=== PATIENT | male | born 1975 | race Hispanic/Latino ===

== ENCOUNTER 2019-04-14 12:25 | Emergency (ER) | payer SELFPAY ==
[2019-04-14 13:46] LABS: Absolute Lymphocytes (CBC) 2.1 K/uL (0.7-4.9); Basophils % 0.6 % (0-1.3); Hematocrit 49.2 % (39.6-49.0); Lymphocytes % 32.4 % (15.3-44.8); MPV 10.5 fL (7.6-11.3); RBC Red Blood Cell Count 5.81 M/uL (4.33-5.43)
[2019-04-14] MEDS ORDERED: FOLIC ACID 5 MG/ML VIAL ONE (13:47)
[2019-04-14] MEDS ORDERED: NA CHLORIDE 0.9% 1,000 ML ONE (13:47)
[2019-04-14 14:01] LABS: Protime INR 1.06
--- NOTE | 2019-04-14 14:01 | RAD REPORT ---
EXAM DESCRIPTION: CT - Head Brain Wo Cont - 04/14/2019 1:25 pm CLINICAL HISTORY: Visual disturbance, stroke-like symptoms COMPARISON: None. TECHNIQUE: Axial 5 mm thick images of the head were obtained without IV contrast. All CT scans are performed using dose optimization technique as appropriate and may include automated exposure control or mA/KV adjustment according to patient size. FINDINGS: No intracranial hemorrhage, mass, edema or shift of mid-line structures. No acute infarcti on changes seen. No abnormal extra-axial fluid collections. Ventricles are normal. Mastoid air cells and visualized portions of the paranasal sinuses are clear. No acute bony findings. IMPRESSION: Negative non-contrast CT head examination.
[2019-04-14 14:03] LABS: ALT/SGPT 41 U/L (12-78); AST/SGOT 17 U/L (15-37); Albumin 3.7 g/dL (3.4-5.0); Alkaline Phosphatase 101 U/L (45-117); BUN Blood Urea Nitrogen 17 mg/dL (7-18); Bicarbonate 27 mmol/L (21-32); Bilirubin Direct 0.2 mg/dL (0-0.2); Glucose Level 197 mg/dL (74-106); Magnesium 2.2 mg/dL (1.8-2.4); NT PRO-BNP 27 pg/mL (<125); Potassium 3.9 mmol/L (3.5-5.1); Protein, Total 7.3 g/dL (6.4-8.2); Sodium Level 141 mmol/L (136-145); Troponin (Emerg Dept Use Only) < 0.02 ng/mL (0.0-0.045)
--- NOTE | 2019-04-14 14:12 | RAD REPORT ---
EXAM DESCRIPTION: RAD - Chest Single View - 04/14/2019 1:55 pm CLINICAL HISTORY: Cough COMPARISON: None. TECHNIQUE: AP portable chest image was obtained 1353 hours . FINDINGS: No focal lung parenchymal process. Interstitial pattern is not outside of normal for stiven ble imaging and body habitus. Heart and vasculature are normal. No measurable pleural effusion and no pneumothorax. No acute bony abnormality seen. No acute aortic findings suspected. IMPRESSION: No acute cardiopulmonary process.
--- NOTE | 2019-04-14 14:48 | ER ---
Nurse's Notes [facility] Name: Atilio Hernandez Age: 43 yrs Sex: Male : 1975 Arrival Date: 04/14/2019 Time: 12:26 Bed 18 Private MD: Diagnosis: Tributary (branch) retinal vein occlusion, left eye;Essential (primary) hypertension;Type 2 diabetes mellitus;Cerebral infarction Presentation: 04/14 12:36 Presenting complaint: Patient states: Lost vision in lower yi in L eye suddenly two ss days ago. Pt went to see an eye doctor who told him he had a stroke in his eye and told him to come to ED immediately. Pt reports that he was scared to he did not come in right away. Denies pain. Transition of care: patient was not received from another setting of care. Onset of symptoms was April 12, 2019. Risk Assessment: Do you want to hurt yourself or someone else? Patient reports no desire to harm self or others. Initial Sepsis Screen: Does the patient meet any 2 criteria? No. Patient's initial sepsis screen is negative. Does the patient have a suspected source of infection? No. Patient's initial sepsis screen is negative. Note Pt went to see Dr. Laura O.D. and was given a diagnosis of branch vein occlusion with macular and papillary edema to OS. Care prior to arrival: None. 12:36 Acuity: JORJE 3 ss 12:36 Method Of Arrival: Ambulatory ss Historical: - Allergies: 12:39 No Known Allergies; ss - Home Meds: 12:39 None [Active]; ss - PMHx: 13:01 Diabetes - NIDDM; ss - PSHx: 12:39 None; ss - Immunization history:: Adult Immunizations up to date. - Social history:: Smoking status: Patient/guardian denies using tobacco. - Ebola Screening: : Patient denies exposure to infectious person Patient denies travel to an Ebola-affected area in the 21 days before illness onset. - Family history:: not pertinent. Screenin:00 Abuse screen: Denies threats or abuse. Denies injuries from another. Nutritional bp screening: No deficits noted. Tuberculosis screening: No symptoms or risk factors identified. Fall Risk None identified. 14:00 Patient has been NPO before screening. The patient is alert, able to follow commands. ph The patient does not exhibit slurred or garbled speech The patient is not exhibiting difficulty speaking. The patient does not exhibit difficulty understanding words. The patient is able to swallow own secretions with no drooling or need for suction. Patient tolerated one teaspoon of water. No drooling, immediate coughing, gurgling, or clearing of the throat was noted. The patient tolerated 90mL of water. No drooling, immediate coughing, gurgling, or clearing of the throat was noted. The patient passed the bedside swallow screening. Oral medications may be given as ordered. Contact Physician for further diet orders. Assessment: 13:00 General: Appears in no apparent distress. comfortable, well groomed, Behavior is calm, ph cooperative, appropriate for age. Pain: Denies pain. Neuro: Level of Consciousness is awake, alert, obeys commands, Oriented to person, place, time, situation, Optics Engineer are equal bilaterally Moves all extremities. Full function Gait is steady, Speech is normal, Facial symmetry appears normal, Pupils are PERRLA, Intact. Neuro: Denies weakness blurred vision dizziness, difficulty swallowing, paresthesias headache. Cardiovascular: Capillary refill < 3 seconds in bilateral fingers Patient's skin is warm and dry. Respiratory: Airway is patent Respiratory effort is even, unlabored, Respiratory pattern is regular, symmetrical. GI: No signs and/or symptoms were reported involving the gastrointestinal system. Derm: Skin is intact, is healthy with good turgor, Skin is pink, warm \T\ dry. Musculoskeletal: Circulation, motion, and sensation intact. Range of motion: intact in all extremities. 14:00 Reassessment: Patient appears in no apparent distress at this time. Patient and/or ph family updated on plan of care and expected duration. Pain level reassessed. Patient is alert, oriented x 3, equal unlabored respirations, skin warm/dry/pink. 15:07 Reassessment: PT D/C HOME AMBULATORY, DX WITH RETINAL VEIN OCCLUSION. bp Vital Signs: 12:39 BP 140 / 97; Pulse 72; Resp 16; Temp 98.6(TE); Pulse Ox 98% on R/A; Height 5 ft. 6 in. ss (167.64 cm); Pain 0/10; 13:30 BP 134 / 78; Pulse 77; Resp 18; Pulse Ox 99% on R/A; ph 14:38 BP 123 / 76; Pulse 89; Resp 16; Temp 98.4; Pulse Ox 100% on R/A; mh5 NIH Stroke Scale Scores: 14:00 NIHSS Score: 1 ph ED Course: 12:26 Patient arrived in ED. rg4 12:39 Triage completed. ss 12:39 Arm band placed on right wrist. ss 12:48 Danilo Hernandez MD is Attending Physician. hellen 13:05 Maya Esqueda, RN is Primary Nurse. ph 13:24 CT completed. Patient tolerated procedure well. Patient moved back from CT. mw3 13:25 CT Head Brain wo Cont In Process Unspecified. EDMS 13:53 XRAY Chest (1 view) In Process Unspecified. EDMS 14:39 Ultrasound completed. Patient tolerated well. Notified ED Physician billie. sg3 14:40 Patient has correct armband on for positive identification. Bed in low position. Side mh5 rails up X 1. Pulse ox on. NIBP on. 14:42 US Carotid Artery Bilateral In Process Unspecified. EDMS 14:47 Tal Rodas MD is Referral Physician. hellen 14:48 Sarabjit Spears MD is Referral Physician. hellen 15:07 No provider procedures requiring assistance completed. IV discontinued, intact, bp bleeding controlled, No redness/swelling at site. Pressure dressing applied. Administered Medications: 13:56 Drug: NS 0.9% 1000 ml Route: IV; Rate: 1 bolus; Site: right antecubital; ph 15:20 Follow up: Response: No adverse reaction; IV Status: Completed infusion; IV Intake: ph 1000ml 13:56 Drug: foLIC Acid 1 mg Route: IVPB; Site: right antecubital; ph 14:30 Follow up: Response: No adverse reaction; IV Status: Completed infusion ph 15:00 Drug: Aspirin Chewable Tablet 324 mg Route: PO; bp 15:06 Follow up: Response: No adverse reaction bp Intake: 15:20 IV: 1000ml; Total: 1000ml. ph Outcome: 14:47 Discharge ordered by . hellen 15:08 Discharged to home ambulatory. bp 15:08 Condition: stable 15:08 Discharge instructions given to patient, Instructed on discharge instructions, follow up and referral plans. medication usage, Demonstrated understanding of instructions, follow-up care, medications, Prescriptions given X 3. 15:09 Patient left the ED. bp NIH Stroke Scale - NIH Stroke Score Date: 04/14/2019 Time: 14:00 Total Score = 1 1a. Level of Consciousness (LOC) - 0(Alert) 1b. Level of Consciousness (LOC) (Year \T\ Age) - 0(Both) 1c. LOC Commands (Open \T\ Closes Eyes/Portfolio Administrator) - 0(Both) 2. Best Gaze (Lateral Gaze Paresis) - 0(Normal) 3. Visual Field Loss - 1(Partial hemianopia) 4. Facial Palsy - 0(Normal) 5a. Left Arm: Motor (10-second hold) - 0(No drift) 5b. Right Arm: Motor (10-second hold) - 0(No drift) 6a. Left Leg: Motor (5-second hold - always test supine) - 0(No drift) 6b. Right Leg: Motor (5-second hold - always test supine) - 0(No drift) 7. Limb Ataxia (finger/nose \T\ heel/bazzi - test with eyes open) - 0(Absent) 8. Sensory Loss (pinprick arms/legs/face) - 0(Normal) 9. Best Language: Aphasia (description/naming/reading) - 0(No aphasia) 10. Dysarthria (speech clarity - read or repeat words) - 0(Normal) 11. Extinction and Inattention (visual/tactile/auditory/spatial/personal) - 0(No abnormality) Initials: ph Signatures: Dispatcher [employer] EDDanilo Arredondo MD MD cha Smirch, Shelby, RN RN ss Hall, Patricia, RN RN ph Garcia, Rubi [facility] Theresa Steiner [facility] Scotty Elliott RN RN bp Godinez, Sarah 3 Sandrine Blackwell mw3 Corrections: (The following items were deleted from the chart) 13:01 12:39 PMHx: Hypertension; ss ss
--- NOTE | 2019-04-14 14:49 | EDPHYS ---
Physician Documentation [facility] Name: Atilio Hernandez Age: 43 yrs Sex: Male : 1975 Arrival Date: 04/14/2019 Time: 12:26 Bed 18 Private MD: ED Physician Danilo Hernandez HPI: 04/14 13:08 This 43 yrs old Male presents to ER via Ambulatory with complaints of Eye hellen Problem. 13:08 The patient is experiencing decreased vision. Onset: The symptoms/episode hellen began/occurred 3 day(s) ago. Duration: the symptoms are continuous. Aggravated by nothing. Associated signs and symptoms: Pertinent positives: None. Severity of symptoms: At their worst the symptoms were mild in the emergency department the symptoms are unchanged. The patient has not experienced similar symptoms in the past. Historical: - Allergies: 12:39 No Known Allergies; ss - Home Meds: 12:39 None [Active]; ss - PMHx: 13:01 Diabetes - NIDDM; ss - PSHx: 12:39 None; ss - Immunization history:: Adult Immunizations up to date. - Social history:: Smoking status: Patient/guardian denies using tobacco. - Ebola Screening: : Patient denies exposure to infectious person Patient denies travel to an Ebola-affected area in the 21 days before illness onset. - Family history:: not pertinent. ROS: 13:08 Constitutional: Negative for fever, chills, and weight loss, ENT: Negative for injury, hellen pain, and discharge, Neck: Negative for injury, pain, and swelling, Cardiovascular: Negative for chest pain, palpitations, and edema, Respiratory: Negative for shortness of breath, cough, wheezing, and pleuritic chest pain, Abdomen/GI: Negative for abdominal pain, nausea, vomiting, diarrhea, and constipation, Back: Negative for injury and pain, : Negative for injury, bleeding, discharge, and swelling, MS/Extremity: Negative for injury and deformity, Skin: Negative for injury, rash, and discoloration, Neuro: Negative for headache, weakness, numbness, tingling, and seizure, Psych: Negative for depression, anxiety, suicide ideation, homicidal ideation, and hallucinations, Allergy/Immunology: Negative for hives, rash, and allergies, Endocrine: Negative for neck swelling, polydipsia, polyuria, polyphagia, and marked weight changes, Hematologic/Lymphatic: Negative for swollen nodes, abnormal bleeding, and unusual bruising. 13:08 Eyes: Positive for vision loss, visual disturbance. Exam: 13:08 Constitutional: This is a well developed, well nourished patient who is awake, alert, hellen and in no acute distress. Head/Face: Normocephalic, atraumatic. ENT: Nares patent. No nasal discharge, no septal abnormalities noted. Tympanic membranes are normal and external auditory canals are clear. Oropharynx with no redness, swelling, or masses, exudates, or evidence of obstruction, uvula midline. Mucous membranes moist. Neck: Trachea midline, no thyromegaly or masses palpated, and no cervical lymphadenopathy. Supple, full range of motion without nuchal rigidity, or vertebral point tenderness. No Meningismus. Chest/axilla: Normal chest wall appearance and motion. Nontender with no deformity. No lesions are appreciated. Cardiovascular: Regular rate and rhythm with a normal S1 and S2. No gallops, murmurs, or rubs. Normal PMI, no JVD. No pulse deficits. Respiratory: Lungs have equal breath sounds bilaterally, clear to auscultation and percussion. No rales, rhonchi or wheezes noted. No increased work of breathing, no retractions or nasal flaring. Abdomen/GI: Soft, non-tender, with normal bowel sounds. No distension or tympany. No guarding or rebound. No evidence of tenderness throughout. Skin: Warm, dry with normal turgor. Normal color with no rashes, no lesions, and no evidence of cellulitis. MS/ Extremity: Pulses equal, no cyanosis. Neurovascular intact. Full, normal range of motion. Neuro: Awake and alert, GCS 15, oriented to person, place, time, and situation. Cranial nerves II-XII grossly intact. Motor strength 5/5 in all extremities. Sensory grossly intact. Cerebellar exam normal. Normal gait. Psych: Awake, alert, with orientation to person, place and time. Behavior, mood, and affect are within normal limits. 13:08 Eyes: Pupils: no acute changes, equal, round, and reactive to light and accomodation, Extraocular movements: intact throughout, Conjunctiva: normal, no acute changes, Corneas: are normal, no acute changes, Sclera: no appreciated abnormality, no acute changes, Anterior chamber: normal, no acute changes, Nystagmus: is not appreciated, no acute changes. Vital Signs: 12:39 BP 140 / 97; Pulse 72; Resp 16; Temp 98.6(TE); Pulse Ox 98% on R/A; Height 5 ft. 6 in. ss (167.64 cm); Pain 0/10; 13:30 BP 134 / 78; Pulse 77; Resp 18; Pulse Ox 99% on R/A; ph 14:38 BP 123 / 76; Pulse 89; Resp 16; Temp 98.4; Pulse Ox 100% on R/A; mh5 NIH Stroke Scale Scores: 14:00 NIHSS Score: 1 ph MDM: 12:48 Patient medically screened. [facility] 13:12 Data reviewed: vital signs, nurses notes, lab test result(s), EKG, radiologic studies, [facility] CT scan, plain films. 04/14 13:08 Order name: Basic Metabolic Panel; Complete Time: 14:47 [facility] 04/14 13:08 Order name: CBC with Diff; Complete Time: 14:47 [facility] 04/14 13:08 Order name: LFT's; Complete Time: 14:47 [facility] 04/14 13:08 Order name: Magnesium; Complete Time: 14:47 [facility] 04/14 13:08 Order name: NT PRO-BNP; Complete Time: 14:47 [facility] 04/14 13:08 Order name: PT-INR; Complete Time: 14:47 [facility] 04/14 13:08 Order name: Troponin (emerg Dept Use Only); Complete Time: 14:47 [facility] 04/14 13:08 Order name: XRAY Chest (1 view); Complete Time: 14:47 [facility] 04/14 13:08 Order name: CT Head Brain wo Cont; Complete Time: 14:47 [facility] 04/14 13:08 Order name: US Carotid Artery Bilateral [facility] 04/14 13:08 Order name: Cardiac monitoring; Complete Time: 13:38 [facility] 04/14 13:08 Order name: EKG - Nurse/Tech; Complete Time: 19:31 [facility] 04/14 13:08 Order name: IV Saline Lock; Complete Time: 13:38 [facility] 04/14 13:08 Order name: Labs collected and sent; Complete Time: 13:38 [facility] 04/14 13:08 Order name: O2 Per Protocol; Complete Time: 13:18 [facility] 04/14 13:08 Order name: O2 Sat Monitoring; Complete Time: 13:18 [facility] Administered Medications: 13:56 Drug: NS 0.9% 1000 ml Route: IV; Rate: 1 bolus; Site: right antecubital; ph 15:20 Follow up: Response: No adverse reaction; IV Status: Completed infusion; IV Intake: ph 1000ml 13:56 Drug: foLIC Acid 1 mg Route: IVPB; Site: right antecubital; ph 14:30 Follow up: Response: No adverse reaction; IV Status: Completed infusion ph 15:00 Drug: Aspirin Chewable Tablet 324 mg Route: PO; bp 15:06 Follow up: Response: No adverse reaction bp Disposition: 04/14/19 14:47 Discharged to Home. Impression: Tributary (branch) retinal vein occlusion, left eye, Essential (primary) hypertension, Type 2 diabetes mellitus, Cerebral infarction. - Condition is Stable. - Discharge Instructions: Type 2 Diabetes Mellitus, Diagnosis, Adult, Hypertension, Hypertension, [id number], How to Take Your Blood Pressure, [id number]-[id number], Aspirin and Your Heart, Type 2 Diabetes Mellitus, Diagnosis, Adult, [id number], Managing Your Hypertension. - Prescriptions for Lisinopril 5 mg Oral Tablet - take 1 tablet by ORAL route once daily; 20 tablet. Folic Acid 1 mg Oral Tablet - take 1 tablet by ORAL route once daily; 30 tablet. - Medication Reconciliation Form, Thank You Letter, Antibiotic Education, Prescription Opioid Use form. - Follow up: Private Physician; When: 2 - 3 days; Reason: Recheck today's complaints, Continuance of care, Re-evaluation by your physician. Follow up: Tal Rodas; When: 2 - 3 days; Reason: Recheck today's complaints, Re-evaluation by your physician. Follow up: Sarabjit Spears MD; When: 2 - 3 days; Reason: Recheck today's complaints, Re-evaluation by your physician. - Problem is new. - Symptoms have improved. NIH Stroke Scale - NIH Stroke Score Date: 04/14/2019 Time: 14:00 Total Score = 1 1a. Level of Consciousness (LOC) - 0(Alert) 1b. Level of Consciousness (LOC) (Year \T\ Age) - 0(Both) 1c. LOC Commands (Open \T\ Closes Eyes/Rn Lvn) - 0(Both) 2. Best Gaze (Lateral Gaze Paresis) - 0(Normal) 3. Visual Field Loss - 1(Partial hemianopia) 4. Facial Palsy - 0(Normal) 5a. Left Arm: Motor (10-second hold) - 0(No drift) 5b. Right Arm: Motor (10-second hold) - 0(No drift) 6a. Left Leg: Motor (5-second hold - always test supine) - 0(No drift) 6b. Right Leg: Motor (5-second hold - always test supine) - 0(No drift) 7. Limb Ataxia (finger/nose \T\ heel/bazzi - test with eyes open) - 0(Absent) 8. Sensory Loss (pinprick arms/legs/face) - 0(Normal) 9. Best Language: Aphasia (description/naming/reading) - 0(No aphasia) 10. Dysarthria (speech clarity - read or repeat words) - 0(Normal) 11. Extinction and Inattention (visual/tactile/auditory/spatial/personal) - 0(No abnormality) Initials: ph Signatures: Dispatcher [employer] EDMS Danilo Hernandez MD MD cha Smirch, Shelby, RN RN ss Maya Esqueda RN RN Scotty Elliott RN RN bp Corrections: (The following items were deleted from the chart) 13:01 12:39 PMHx: Hypertension; [facility] [place] 14:48 14:47 04/14/2019 14:47 Discharged to Home. Impression: Tributary (branch) hellen retinal vein occlusion, left eye; Essential (primary) hypertension; Type 2 diabetes mellitus; Cerebral infarction. Condition is Stable. Discharge Instructions: Type 2 Diabetes Mellitus, Diagnosis, Adult, Hypertension, Hypertension, [id number], How to Take Your Blood Pressure, [id number], Aspirin and Your Heart, Type 2 Diabetes Mellitus, Diagnosis, Adult, Dgni-[id number], Managing Your Hypertension. Prescriptions for Lisinopril 5 mg Oral Tablet - take 1 tablet by ORAL route once daily; 20 tablet. and Forms are Medication Reconciliation Form, Thank You Letter, Antibiotic Education, Prescription Opioid Use. Follow up: Private Physician; When: 2 - 3 days; Reason: Recheck today's complaints, Continuance of care, Re-evaluation by your physician. Follow up: Tal Rodas; When: 2 - 3 days; Reason: Recheck today's complaints, Re-evaluation by your physician. Problem is new. Symptoms have improved. hellen 15:09 14:48 04/14/2019 14:47 Discharged to Home. Impression: Tributary (branch) bp retinal vein occlusion, left eye; Essential (primary) hypertension; Type 2 diabetes mellitus; Cerebral infarction. Condition is Stable. Discharge Instructions: Type 2 Diabetes Mellitus, Diagnosis, Adult, Hypertension, Hypertension, [id number], How to Take Your Blood Pressure, Jowi-in-Doby, Aspirin and Your Heart, Type 2 Diabetes Mellitus, Diagnosis, Adult, [id number], Managing Your Hypertension. Prescriptions for Lisinopril 5 mg Oral Tablet - take 1 tablet by ORAL route once daily; 20 tablet, Folic Acid 1 mg Oral Tablet - take 1 tablet by ORAL route once daily; 30 tablet. and Forms are Medication Reconciliation Form, Thank You Letter, Antibiotic Education, Prescription Opioid Use. Follow up: Private Physician; When: 2 - 3 days; Reason: Recheck today's complaints, Continuance of care, Re-evaluation by your physician. Follow up: Tal Rodas; When: 2 - 3 days; Reason: Recheck today's complaints, Re-evaluation by your physician. Follow up: Sarabjit Spears; When: 2 - 3 days; Reason: Recheck today's complaints, Re-evaluation by your physician. Problem is new. Symptoms have improved. hellen
[2019-04-14] MEDS ORDERED: ASPIRIN 81 MG CHEWABLE TABLET ONE (15:01)
[2019-04-14 15:28] VITALS: BP 123/76; TEMP 98.4; O2SAT 100
--- NOTE | 2019-04-14 15:43 | RAD REPORT ---
EXAM DESCRIPTION: - CP - 04/14/2019 2:42 pm CLINICAL HISTORY: Dizziness;Visual disturbances COMPARISON: No comparisons TECHNIQUE: Real-time sonographic evaluation of bilateral carotid and vertebral systems was performed . Rose scale and Doppler interrogation were performed with waveform tracing bilaterally. FINDINGS: Normal high resistance waveforms are noted in both external carotid arteries. The common c arotid arteries and internal carotid arteries show normal low resistance waveforms. No significant plaque formation is seen. Peak systolic and end diastolic velocity values and the ICA/ CCA ratios are in the non-hemodynamically significant range. Antegrade flow seen in both vertebral arteries. Velocity values and ratios were recorded and are retained in the patient's imaging records. IMPRESSION: No significant atherosclerotic changes noted. No evidence of a hemodynamically significant stenosis.
== END 2019-04-14 15:09 | disposition home or self-care (01) ==
LOC: ER 12:25
DX: I63.9 Cerebral infarction, unspecified (principal); H53.8 Other visual disturbances; H34.8322 Tributary (branch) retinal vein occlusion, left eye, stable; I10 Essential (primary) hypertension; E11.9 Type 2 diabetes mellitus without complications
CPT/HCPCS: 36415; 70450; 71045; 80048; 80076; 83735; 83880; 84484; 85025; 85610; 93880; 96361; 96365; 99284; J7030

== ENCOUNTER 2021-12-04 20:44 | Emergency (ER) | payer SELFPAY ==
--- NOTE | 2021-12-04 22:33 | RAD REPORT ---
EXAM DESCRIPTION: RAD - Hand Right 3 View - 12/04/2021 9:53 pm CLINICAL HISTORY: DEFORMITY, saw injury COMPARISON: No comparisonsdelete select FINDINGS: On the antrum attic amputation of the tuft third distal phalanx. Significant soft tissue w ound present as well. No acute bone finding of the fourth digit. There is evidence for soft tissue in jury at the tip of the fourth digit. No other bone or joint abnormality. No foreign body is seen. 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
--- NOTE | 2021-12-04 22:39 | EDPHYS ---
Physician Documentation [facility] Name: Atilio Hernandez Age: 46 yrs Sex: Male : 1975 Arrival Date: 12/04/2021 Time: 20:46 Bed 12 Private MD: ED Physician Peryr Kidd HPI: 12/04 22:32 This 46 yrs old Male presents to ER via Ambulatory with complaints of Finger jl9 Injury. 22:32 Trauma demographics: Location of Injury: The injury occurred at home. Mechanism of jl9 injury: Cut with saw.. Associated injuries: The patient sustained 3rd and 4th digit fingertips. . Onset: The symptoms/episode began/occurred just prior to arrival. Historical: - Allergies: 20:58 No Known Allergies; eh3 - Home Meds: 20:58 Metformin Oral [Active]; Lisinopril Oral [Active]; eh3 - PMHx: 20:58 Diabetes - NIDDM; eh3 - PSHx: 20:58 None; eh3 - Immunization history:: Adult Immunizations up to date. - Social history:: Smoking status: Patient denies any tobacco usage or history of. Patient/guardian denies using alcohol. ROS: 22:33 Constitutional: Negative for fever, chills, and weight loss, Eyes: Negative for injury, jl9 pain, redness, and discharge, ENT: Negative for injury, pain, and discharge, Neck: Negative for injury, pain, and swelling, Cardiovascular: Negative for chest pain, palpitations, and edema, Respiratory: Negative for shortness of breath, cough, wheezing, and pleuritic chest pain, Abdomen/GI: Negative for abdominal pain, nausea, vomiting, diarrhea, and constipation, Back: Negative for injury and pain. 22:33 Skin: Negative for injury, rash, and discoloration, Neuro: Negative for headache, weakness, numbness, tingling, and seizure, Psych: Negative for depression, anxiety, suicide ideation, homicidal ideation, and hallucinations, Allergy/Immunology: Negative for hives, rash, and allergies, Endocrine: Negative for neck swelling, polydipsia, polyuria, polyphagia, and marked weight changes, Hematologic/Lymphatic: Negative for swollen nodes, abnormal bleeding, and unusual bruising. 22:33 MS/extremity: Positive for laceration. Exam: 22:34 Constitutional: This is a well developed, well nourished patient who is awake, alert, jl9 and in no acute distress. Head/Face: Normocephalic, atraumatic. Eyes: Pupils equal round and reactive to light, extra-ocular motions intact. Lids and lashes normal. Conjunctiva and sclera are non-icteric and not injected. Cornea within normal limits. Periorbital areas with no swelling, redness, or edema. ENT: Mucous membranes moist. Neck: Trachea midline, no thyromegaly or masses palpated, and no cervical lymphadenopathy. Supple, full range of motion without nuchal rigidity, or vertebral point tenderness. No Meningismus. Chest/axilla: Normal chest wall appearance and motion. Nontender with no deformity. No lesions are appreciated. Cardiovascular: Regular rate and rhythm with a normal S1 and S2. No gallops, murmurs, or rubs. Normal PMI, no JVD. No pulse deficits. Respiratory: Lungs have equal breath sounds bilaterally, clear to auscultation and percussion. No rales, rhonchi or wheezes noted. No increased work of breathing, no retractions or nasal flaring. Abdomen/GI: Soft, non-tender, with normal bowel sounds. No distension or tympany. No guarding or rebound. No evidence of tenderness throughout. Back: No spinal tenderness. No costovertebral tenderness. Full range of motion. Skin: Warm, dry with normal turgor. Normal color with no rashes, no lesions, and no evidence of cellulitis. 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 . Vital Signs: 21:06 BP 164 / 100; Pulse 75; Resp 18; Temp 98.2; Pulse Ox 98% on R/A; Weight 68.04 kg; eh3 Height 5 ft. 5 in. (165.10 cm); Pain 3/10; 23:51 BP 152 / 100; Pulse 68; Resp 17; Pulse Ox 99% on R/A; ll3 23:51 BP 152 / 100; Pulse 68; Resp 17; Pulse Ox 99% on R/A; ll3 21:06 Body Mass Index 24.96 (68.04 kg, 165.10 cm) 3 Laceration: 23:39 Wound Repair of 2cm ( 0.8in ) subcutaneous laceration to right hand. Distal jl9 neuro/vascular/tendon intact. Anesthesia: Local anesthetic administered with 4 mls of 1% lidocaine. Wound prep: Simple cleansing, Moderate cleansing. Skin closed with 8 5-0 Vicryl using simple sutures and sterile technique. Dressed with Bacitracin, 4x4's. Patient tolerated well. 23:39 Wound Repair of 4cm ( 1.6in ) subcutaneous laceration to right hand and right middle jl9 fingernail. Irregularly shaped.. Distal neuro/vascular/tendon intact. Anesthesia: Local anesthetic administered with 5 mls of 1% lidocaine. Wound prep: Simple cleansing, Moderate cleansing. Skin closed with 4 5-0 Vicryl using simple sutures and sterile technique. Dressed with Bacitracin, 4x4's. Patient tolerated well. MDM: 20:52 Patient medically screened. jl9 22:38 Data reviewed: vital signs, nurses notes. Counseling: I had a detailed discussion with [facility] the patient and/or guardian regarding: the historical points, exam findings, and any diagnostic results supporting the discharge/admit diagnosis, radiology results, the need to transfer to another facility. 23:37 Counseling: I had a detailed discussion with the patient and/or guardian regarding: jl9 Patient refusing to be transferred and would like to be discharged. Patient notified of possible consequences including infection and possible loss of his limb. Patient states he will return to ED if hand worsens. . 12/04 22:33 Order name: SARS RAPID [facility] 12/04 23:14 Order name: SARS-COV-2 Antigen Rapid [facility] 12/04 21:04 Order name: XRAY Hand RIGHT 3 View; Complete Time: 22:35 [facility] 12/04 21:09 Order name: Suture Tray Setup; Complete Time: 21:13 [facility] 12/04 21:09 Order name: Sutures, Vicryl; Complete Time: 21:10 [facility] Administered Medications: 23:09 Drug: HYDROcodone-acetaminophen 5 mg-325 mg 2 tabs Route: PO; ll3 23:51 Follow up: BP 152 / 100; Pulse 68 bpm; Resp 17 bpm; Pulse Ox 99% RA; Response: No ll3 adverse reaction Disposition: 12/05 09:16 Co-signature as Attending Physician, Perry FORREST was immediately available on-site ms3 in the emergency department for consultation in the care of the patient. Disposition Summary: 12/04/21 23:43 Discharge Ordered Location: Home jl9 Condition: Fair(12/04/21 23:43) jl9 Diagnosis - Hand Laceration/ Open wound of hand jl9 Followup: jl9 - With: Anson Lee MD - When: 1 - 2 days - Reason: Recheck today's complaints, Continuance of care, Re-evaluation by your physician Discharge Instructions: - Discharge Summary Sheet jl9 - Traumatic Finger Amputation jl9 Forms: - Medication Reconciliation Form jl9 - Thank You Letter jl9 - Antibiotic Education jl9 - Prescription Opioid Use jl9 Prescriptions: - Tramadol 50 mg Oral Tablet - take 1 tablet by ORAL route every 8 hours as needed; 20 tablet; Refills: 0, jl9 Product Selection Permitted - Bactrim DS 800-160 mg Oral Tablet - take 1 tablet by ORAL route every 12 hours for 10 days; 20 tablet; Refills: 0, jl9 Product Selection Permitted Signatures: Dispatcher [employer] EDMS Perry Kidd DO DO ms3 Jaspreet Jules, RN RN ll3 Candie Esqueda, ROSANGELA RN 3 Luis Fuentes jl9 Corrections: (The following items were deleted from the chart) 12/04 23:42 22:38 Pending jl9 jl9 23:42 22:38 [facility] jl9 jl9 23:42 22:38 Higher level of care jl9 jl9 23:42 22:38 Stable jl9 jl9 23:42 22:38 new jl9 jl9 23:42 22:38 have worsened jl9 jl9 23:42 22:38 Unspecified open wound of right hand, initial encounter jl9 jl9
--- NOTE | 2021-12-04 22:39 | ER ---
Nurse's Notes [facility] Name: Atilio Hernandez Age: 46 yrs Sex: Male : 1975 Arrival Date: 12/04/2021 Time: 20:46 Bed 12 Private MD: Diagnosis: Hand Laceration/ Open wound of hand Presentation: 12/04 20:55 Chief complaint: Patient states: cut right middle and ring finger with saw while eh3 working at home. Coronavirus screen: Vaccine status: Patient reports receiving the 2nd dose of the covid vaccine. Ebola Screen: No symptoms or risks identified at this time. Initial Sepsis Screen: Does the patient meet any 2 criteria? No. Patient's initial sepsis screen is negative. Does the patient have a suspected source of infection? No. Patient's initial sepsis screen is negative. Risk Assessment: Do you want to hurt yourself or someone else? Patient reports no desire to harm self or others. Onset of symptoms was December 04, 2021. 20:55 Method Of Arrival: Ambulatory 3 20:55 Acuity: JORJE 4 eh3 Triage Assessment: 20:58 General: Appears in no apparent distress. comfortable, Behavior is calm, cooperative, eh3 appropriate for age. Pain: Complains of pain in right middle fingernail and right ring fingernail Pain does not radiate. Pain currently is 3 out of 10 on a pain scale. Neuro: Level of Consciousness is awake, alert, obeys commands, Oriented to person, place, time, situation. 21:06 Musculoskeletal: Capillary refill < 3 seconds. Injury Description: Laceration sustained eh3 to right middle fingernail and right ring fingernail. Historical: - Allergies: 20:58 No Known Allergies; eh3 - Home Meds: 20:58 Metformin Oral [Active]; Lisinopril Oral [Active]; eh3 - PMHx: 20:58 Diabetes - NIDDM; eh3 - PSHx: 20:58 None; eh3 - Immunization history:: Adult Immunizations up to date. - Social history:: Smoking status: Patient denies any tobacco usage or history of. Patient/guardian denies using alcohol. Screenin:51 Abuse screen: Denies threats or abuse. Nutritional screening: No deficits noted. ll3 Tuberculosis screening: No symptoms or risk factors identified. Fall Risk None identified. Assessment: 22:30 Reassessment: No changes from previously documented assessment. Patient and/or family ll3 updated on plan of care and expected duration. Pain level reassessed. 23:51 Reassessment: No changes from previously documented assessment. Patient and/or family ll3 updated on plan of care and expected duration. Pain level reassessed. Vital Signs: 21:06 BP 164 / 100; Pulse 75; Resp 18; Temp 98.2; Pulse Ox 98% on R/A; Weight 68.04 kg; eh3 Height 5 ft. 5 in. (165.10 cm); Pain 3/10; 23:51 BP 152 / 100; Pulse 68; Resp 17; Pulse Ox 99% on R/A; ll3 23:51 BP 152 / 100; Pulse 68; Resp 17; Pulse Ox 99% on R/A; ll3 21:06 Body Mass Index 24.96 (68.04 kg, 165.10 cm) eh3 ED Course: 20:46 Patient arrived in ED. ja2 20:52 Luis Fuentes is PHCP. jl9 20:52 Perry Kidd DO is Attending Physician. jl9 20:58 Triage completed. eh3 21:06 Arm band placed on left wrist. eh3 21:55 XRAY Hand RIGHT 3 View In Process Unspecified. EDMS 23:42 Anson Lee MD is Referral Physician. jl9 23:51 Patient has correct armband on for positive identification. Bed in low position. Call ll3 light in reach. Side rails up X 1. 23:51 No provider procedures requiring assistance completed. Patient did not have IV access ll3 during this emergency room visit. Administered Medications: 23:09 Drug: HYDROcodone-acetaminophen 5 mg-325 mg 2 tabs Route: PO; ll3 23:51 Follow up: BP 152 / 100; Pulse 68 bpm; Resp 17 bpm; Pulse Ox 99% RA; Response: No ll3 adverse reaction Medication: 23:51 VIS not applicable for this client. ll3 Outcome: 22:38 ER care complete, transfer ordered by . jl9 23:43 Discharge ordered by . jl9 12/05 00:03 Discharged to home ambulatory, with family. ll3 Condition: stable Discharge instructions given to patient, family, Instructed on discharge instructions, follow up and referral plans. medication usage, Demonstrated understanding of instructions, follow-up care, medications, Prescriptions given X 2. 00:03 Patient left the ED. ll3 Signatures: Dispatcher [employer] EDMS Yanelis Coleman Lynsea RN RN ll3 Candie Esqueda RN RN 3 Luis Fuentes 9
[2021-12-04] MEDS ORDERED: HYDROCODONE/APAP 5/325 MG TAB ONE (23:13)
[2021-12-04 23:34] LABS: SARS-CoV-2 Antigen Rapid Res Negative (Negative)
[2021-12-05 03:05] VITALS: TEMP 98.2
[2021-12-05 03:09] VITALS: BP 152/100; O2SAT 99
== END 2021-12-05 00:03 | disposition home or self-care (01) ==
LOC: ER 20:44
PROC: 0JQJ0ZZ Repair Right Hand Subcutaneous Tissue and Fascia, Open Approach (ICD-10-PCS; principal; 2021-12-05)
DX: S61.411A Laceration without foreign body of right hand, initial encounter (principal); E11.9 Type 2 diabetes mellitus without complications
CPT/HCPCS: 36415; 87811; 99283